=== PATIENT | male | born 1985 | race Caucasian/White ===

== ENCOUNTER 2017-09-18 11:48 | Emergency (ER) | payer OTHER ==
[~2017-09-18] VITALS: Ht 172.7 cm; Wt 92.5 kg
[~2017-09-18 11:48] MED LIST: NOHOMEMEDS
[2017-09-18 13:04] LABS: HEMATOCRIT 44.9 % (38.0-50.0); HEMOGLOBIN 15.7 G/DL (12.5-16.6); MCH 30.1 PG (29.0-34.0); MCV 86.2 FL (86-99); PLATELET COUNT 165 K/uL (156-360); RBC DIS.WIDTH-CV 11.9 % (11.8-14.6); RBC DIS.WIDTH-SD 38.4 % (39-53); RED BLOOD COUNT 5.21 M/uL (4.00-5.50); WHITE BLOOD COUNT 8.4 K/uL (4.1-10.2)
[2017-09-18 13:13] LABS: CHLORIDE 105 mEq/L (99-109); POTASSIUM 4.3 mEq/L (3.7-5.4); SODIUM 139 mEq/L (136-147)
[2017-09-18 13:14] LABS: GLUCOSE 103 mg/dL (70-99)
[2017-09-18 13:18] LABS: GFR ESTIMATE (CALCULATED) > 59 mL/min/ (58.99-99999)
[2017-09-18 13:19] LABS: UREA NITROGEN (BUN) 9 mg/dL (9-23)
[2017-09-18] MEDS ORDERED: ZOFRAN4 MG PO (16:04)
[2017-09-18 16:20] VITALS: BP 93/65
== END 2017-09-18 16:20 | disposition home or self-care (01) ==
LOC: EME 11:48
DX: B34.9 Viral infection, unspecified (principal)
CPT/HCPCS: 71046; 80048; 85027; 99281; 99283